=== PATIENT | female | born 1945 | race Caucasian/White ===

== ENCOUNTER 2020-02-16 14:48 | Outpatient (CLI) | payer MEDICARE, SELFPAY | END 2020-02-16 14:49 | disposition home or self-care (01) | LOC: CHSOUTPT 15:00 | PROVIDERS: PCP Internal Medicine; Visit Provider Specialist | DX: D09.8 Carcinoma in situ of other specified sites (principal); L57.0 Actinic keratosis | CPT/HCPCS: 88305 ==

== ENCOUNTER 2023-08-03 13:30 | Outpatient (CLI) | payer MEDICARE, SELFPAY | END 2023-08-03 13:31 | disposition home or self-care (01) | PROVIDERS: PCP Internal Medicine; Visit Provider Specialist | DX: L85.8 Other specified epidermal thickening (principal) | CPT/HCPCS: 88305 ==